=== PATIENT | male | born 2000 | race African-American/Black ===

== ENCOUNTER 2023-06-10 21:23 | Emergency (ER) | payer OTHER ==
[2023-06-10 21:29] VITALS: BP 132/75; PULSE 77; RESP 18; TEMP 97.9; BMI 30.7
[2023-06-10] MEDS ORDERED: ALBUTEROL SO4 2.5/IPRATROPIUM 0.5 INH SOL 3 ML VIAL.NEB. NEB SCH (22:15)
[2023-06-10] MEDS ORDERED: ALBUTEROL SO4 0.042% IH SOL 1.25 MG/3 ML VIAL.NEB NEB ONE (22:27)
[2023-06-10] MEDS ORDERED: ALBUTEROL SO4 2.5/IPRATROPIUM 0.5 INH SOL 3 ML VIAL.NEB. NEB ONE (22:56)
[2023-06-10] MEDS ORDERED: ALBUTEROL SO4 HFA INHALER IH ONE ×2 (23:24→23:41)
== END 2023-06-10 23:46 | disposition home or self-care (01) ==
LOC: JER 21:23
PROC: 3E0F7GC Introduction of Other Therapeutic Substance into Respiratory Tract, Via Natural or Artificial Opening (ICD-10-PCS; principal; 2023-06-10)
DX: R07.89 Other chest pain (principal); J45.909 Unspecified asthma, uncomplicated; Z20.822 Contact with and (suspected) exposure to COVID-19
CPT/HCPCS: 0241U-QW; 71046-TC-FY; 99284-25